=== PATIENT | female | born 1985 | race Caucasian/White ===

== ENCOUNTER 2017-12-11 10:03 | Emergency (ER) | payer OTHER ==
[~2017-12-11] VITALS: Ht 167.6 cm; Wt 82.9 kg
[~2017-12-11 10:03] MED LIST: ACETAZOLAMIDE125 MG PO; DIAMOX250 MG PO; FIORICET 50-301 EACH PO; FIORICET,ESG1 TABLET PO; MAGNESIUM400 M1 PO; MEDROL DOSEPAK4 MG PO; RIBAVIRIN200 M1 PO
[2017-12-11 11:42] VITALS: BP 127/80
== END 2017-12-11 11:43 | disposition home or self-care (01) ==
LOC: EME 10:03
PROC: 0HQFXZZ Repair Right Hand Skin, External Approach (ICD-10-PCS; principal; 2017-12-11)
DX: S61.411A Laceration without foreign body of right hand, initial encounter (principal); W25.XXXA Contact with sharp glass, initial encounter; Y93.G1 Activity, food preparation and clean up; F17.200 Nicotine dependence, unspecified, uncomplicated; Z71.6 Tobacco abuse counseling
CPT/HCPCS: 99281; 99283

== ENCOUNTER 2018-03-24 20:29 | Emergency (ER) | payer OTHER ==
[~2018-03-24] VITALS: Ht 167.6 cm; Wt 78.2 kg
[2018-03-24 21:13] LABS: ALBUMIN 3.7 g/dL (3.2-4.8); CHLORIDE 112 mEq/L (99-109); POTASSIUM 4.1 mEq/L (3.7-5.4); SODIUM 142 mEq/L (136-147)
[2018-03-24 21:15] LABS: GLUCOSE 82 mg/dL (70-99)
[2018-03-24 21:17] LABS: APPEARANCE CLEAR ((CLEAR)); BILIRUBIN NEGATIVE; BLOOD NEGATIVE; COLOR YELLOW ((YELLOW)); GLUCOSE (STRIP) NEGATIVE; KETONES 5; LEUKOCYTES NEGATIVE; NITRITE NEGATIVE; PROTEIN (STRIP) 30; UCUL ADDED? NO
[2018-03-24 21:17] LABS: TOTAL BILIRUBIN 0.7 mg/dL (0.0-1.0)
[2018-03-24 21:19] LABS: ALKALINE PHOSPHATASE 48 IU/L (3-129); CREATININE 0.8 mg/dL (0.6-1.3); GFR ESTIMATE (CALCULATED) > 59 mL/min/
[2018-03-24 21:20] LABS: UREA NITROGEN (BUN) 9 mg/dL (9-23)
[2018-03-24 21:21] LABS: AST (GOT) 12 IU/L (2-34)
[2018-03-24 21:22] LABS: ALT (GPT) 10 IU/L (3-49)
[2018-03-24 21:30] LABS: QUANTITATIVE HCG < 4.0 MIU/ML
[2018-03-24 21:37] LABS: HEMATOCRIT 47.7 % (36.0-46.0); HEMOGLOBIN 16.1 G/DL (11.9-15.5); MCH 31.1 PG (29.0-34.0); MCHC 33.8 G/DL (30.0-36.0); MCV 92.3 FL (83-99); PLATELET COUNT 169 K/uL (156-360); RBC DIS.WIDTH-CV 12.6 % (11.8-14.6); RED BLOOD COUNT 5.17 M/uL (3.80-5.20); WHITE BLOOD COUNT 13.2 K/uL (4.1-10.2)
[2018-03-24] MEDS ORDERED: MOTRIN600 MG PO (22:47)
[2018-03-24 23:50] VITALS: BP 131/80
== END 2018-03-24 23:52 | disposition home or self-care (01) ==
LOC: EME 20:29 → RME 20:29
DX: N83.201 Unspecified ovarian cyst, right side (principal); D72.829 Elevated white blood cell count, unspecified; F17.200 Nicotine dependence, unspecified, uncomplicated; G43.909 Migraine, unspecified, not intractable, without status migrainosus; F41.9 Anxiety disorder, unspecified; Z88.2 Allergy status to sulfonamides
CPT/HCPCS: 76856; 80053; 81003; 84702; 85027; 99281; 99284; J1885